=== PATIENT | female | born 1995 | race Caucasian/White ===

== ENCOUNTER 2017-01-18 21:36 | Emergency (ER) | payer BC ==
[~2017-01-18] VITALS: Ht 177.8 cm; Wt 101.4 kg
[~2017-01-18 21:36] MED LIST: IMPLANON; LEXAPRO20 MG PO
[2017-01-18 23:17] LABS: BASO % 0.3 % (0.0-2.0); EOS % 0.1 % (0-4.0); GRAN # 11.5 (1.4-6.5); GRAN % 80.1 % (42.2-75.2); HEMOGLOBIN 14.2 g/dl (12.0-15.0); LYMPH # 1.6 (1.2-3.4); LYMPH % 11.2 % (20.0-51.0); MEAN CELL VOLUME 84 fl (80.0-95.0); MEAN CORPUSCULAR HEMOGLOBIN 28 pg (26.0-32.0); MEAN CORPUSCULAR HGB CONC 33 g/dl (33.0-37.0); MEAN PLATELET VOLUME 10.7 fl (7.4-10.4); MONO # 1.1 (0.1-0.6); PLATELET COUNT 269 K/mm3 (130-400); RED BLOOD COUNT 5.14 M/mm3 (4.10-5.30); REDCELL DISTRIBUTION WIDTH-CV 12.8 % (11.5-14.5); WHITE BLOOD COUNT 14.3 K/mm3 (4.8-10.8)
[2017-01-18 23:20] LABS: PH 6 (5-8); URINE APPEARANCE Clear; URINE BACTERIA Rare /hpf; URINE BILIRUBIN Negative (NEGATIVE); URINE BLOOD 1+ (NEGATIVE); URINE COLOR Yellow; URINE GLUCOSE Negative (NEGATIVE); URINE KETONE 1+ (NEGATIVE); URINE RBC 0-2 /hpf; URINE UROBILINOGEN Negative (NEGATIVE)
[2017-01-18 23:29] LABS: ADJUSTED CALCIUM 9.2 mg/dL (8.4-10.2); ALBUMIN 4.3 gm/dL (3.5-5.0); CALCIUM 9.4 mg/dL (8.4-10.2); CREATININE, serum 0.9 mg/dL (0.52-1.25); POTASSIUM 3.8 mmol/L (3.4-5.0); TOTAL PROTEIN 8.1 gm/dL (6.4-8.2)
[2017-01-19 00:36] VITALS: BP 94/60; PULSE 72; TEMP 98.4
== END 2017-01-19 00:40 | disposition home or self-care (01) ==
LOC: COL.ER 21:36
PROVIDERS: Physician Assistant
DX: R50.9 Fever, unspecified (principal); R51 Headache; R05 Cough; R42 Dizziness and giddiness; G43.909 Migraine, unspecified, not intractable, without status migrainosus
CPT/HCPCS: J2405; J7030

== ENCOUNTER 2017-04-20 10:08 | Emergency (ER) | payer BC ==
[~2017-04-20] VITALS: Ht 175.3 cm; Wt 90.9 kg
[2017-04-20 10:08] VITALS: BP 155/94; TEMP 98.7
[2017-04-20] MEDS ORDERED: AMOXICILLIN 8751 TAB PO (13:26)
[2017-04-20 13:38] VITALS: PULSE 82
== END 2017-04-20 13:38 | disposition home or self-care (01) ==
LOC: COL.ER 10:08
DX: S11.91XA Laceration without foreign body of unspecified part of neck, initial encounter (principal); S11.95XA Open bite of unspecified part of neck, initial encounter; W54.0XXA Bitten by dog, initial encounter; Y92.009 Unspecified place in unspecified non-institutional (private) residence as the place of occurrence of the external cause
CPT/HCPCS: J3010; Q9967

== ENCOUNTER 2018-01-06 11:55 | Outpatient (CLI) | payer BC, MEDICAID ==
[~2018-01-06] VITALS: Ht 177.8 cm; Wt 110.5 kg
[~2018-01-06 11:55] MED LIST changes: +AMOXICILLIN 8751 TAB PO
[2018-01-06 12:12] VITALS: BP 124/78; PULSE 109; TEMP 98.6
== END 2018-01-06 13:15 | disposition home or self-care (01) ==
LOC: LDRO 11:55
DX: O62.9 Abnormality of forces of labor, unspecified (principal); Z3A.36 36 weeks gestation of pregnancy

== ENCOUNTER 2018-01-22 14:47 | Outpatient (CLI) | payer BC, MEDICAID ==
[~2018-01-22] VITALS: Ht 177.8 cm; Wt 110.5 kg
[2018-01-22 14:53] VITALS: BP 134/75; PULSE 75; TEMP 97.7
[2018-01-22] MEDS ORDERED: ZOFRAN 4MG T4 MG/TAB PO (14:58)
== END 2018-01-22 15:30 | disposition home or self-care (01) ==
LOC: LDRO 14:47
DX: O42.92 Full-term premature rupture of membranes, unspecified as to length of time between rupture and onset of labor (principal); Z3A.38 38 weeks gestation of pregnancy

== ENCOUNTER 2018-01-28 06:53 | Inpatient (IN) | payer BC, MEDICAID ==
[2018-01-28] VITALS (25 sets, daily range): BP systolic 107–138; BP diastolic 59–99; PULSE 51–99; TEMP 98–98.7
[~2018-01-28] VITALS: Ht 172.7 cm; Wt 110.5 kg
[~2018-01-28 06:53] MED LIST changes: +ZOFRAN 4MG T4 MG/TAB PO
[2018-01-28 08:12] LABS: BASO % 0.3 % (0.0-2.0); EOS # 0.1 (0.0-0.7); EOS % 1.3 % (0-4.0); GRAN # 7.9 (1.4-6.5); GRAN % 73.5 % (42.2-75.2); HEMOGLOBIN 10.2 g/dl (12.5-16.0); LYMPH # 1.7 (1.2-3.4); LYMPH % 15.6 % (20.0-51.0); MEAN CELL VOLUME 76 fl (80.0-100.0); MEAN CORPUSCULAR HEMOGLOBIN 24 pg (27.0-31.0); MEAN CORPUSCULAR HGB CONC 32 g/dl (33.0-37.0); MEAN PLATELET VOLUME 10.9 fl (7.4-10.4); MONO # 0.9 (0.1-0.6); MONO % 8.2 % (1.7-9.3); PLATELET COUNT 216 K/mm3 (130-400); RED BLOOD COUNT 4.19 M/mm3 (4.10-5.30)
[2018-01-28 08:13] LABS: HEMATOCRIT 31.7 % (37.0-47.0)
[2018-01-29 05:00] VITALS: BP 107/56; PULSE 70; TEMP 98.2
[2018-01-29] MEDS ORDERED: MOTRIN 800800 MG/TAB PO (06:32)
[2018-01-29] MEDS ORDERED: PERCOCET 325 MG1 TA2 PO (06:32)
[2018-01-29 07:27] VITALS: BP 128/78; PULSE 72; TEMP 98.1
[2018-01-29 07:30] LABS: HEMATOCRIT 33.4 % (37.0-47.0); HEMOGLOBIN 10.7 g/dl (12.5-16.0)
[2018-01-29 15:48] VITALS: BP 116/78; PULSE 70; TEMP 98.1
[2018-01-29 19:30] VITALS: BP 135/78; PULSE 82; TEMP 97.6
[2018-01-30 07:15] VITALS: BP 114/61; PULSE 77; TEMP 97.6
== END 2018-01-30 12:35 | disposition home or self-care (01) | DRG 766 ==
LOC: LDR 06:53 → OB 12:25 → LDR 14:41 → OB 01-30 12:35
PROVIDERS: Obstetrics & Gynecology
PROC: 10D00Z1 Extraction of Products of Conception, Low, Open Approach (ICD-10-PCS; principal; 2018-01-28)
PROC: 3E033VJ Introduction of Other Hormone into Peripheral Vein, Percutaneous Approach (ICD-10-PCS; 2018-01-28)
DX: O75.89 Other specified complications of labor and delivery (principal); O32.1XX0 Maternal care for breech presentation, not applicable or unspecified; O99.344 Other mental disorders complicating childbirth; F32.9 Major depressive disorder, single episode, unspecified; O99.820 Streptococcus B carrier state complicating pregnancy; Z37.0 Single live birth; Z3A.39 39 weeks gestation of pregnancy
CPT/HCPCS: J0690; J1885; J2370; J2405; J2540; J2590; J7120